=== PATIENT | female | born 1990 | race Caucasian/White ===

== ENCOUNTER → 2023-08-10 13:51 | Outpatient (REF) | payer BC, SELFPAY | LOC: HWRAD 13:51 | PROVIDERS: ATTENDING PHYSICIAN Physician Assistant Medical | DX: R35.0 Frequency of micturition (principal) | CPT/HCPCS: 76830; 76856 ==

== ENCOUNTER 2023-09-18 16:52 | Emergency (ER) | payer BC, SELFPAY ==
[2023-09-18 16:55] VITALS: BP 164/107
[2023-09-18 17:33] LABS: HCG, Serum Qualitative Screen Negative
[2023-09-18 17:35] LABS: % Basophils 0.5 % (0-2); % Eosinophils 2.4 % (0-6); % Immature Granulocytes 0.3 % (0-0.5); % Lymphocytes 33.4 % (20.5-51.1); % Monocytes 5.7 % (1.7-9.3); % Neutrophils 57.7 % (42.2-75.2); Absolute Eosinophils 0.2 10^3/uL (0-0.7); Absolute Lymphocytes 2.9 10^3/uL (1.2-3.4); Absolute Monocytes 0.5 10^3/uL (0.1-0.6); Hematocrit 38.6 % (37.0-47.0); Hemoglobin 13.2 g/dL (12.0-16.0); Mean Corp Hgb Conc. 34.2 g/dL (33.0-37.0); Mean Corpuscular Hgb 29.6 pg (27.0-31.0); Mean Corpuscular Volume 86.5 fL (81.0-99.0); Mean Platelet Volume 9.5 fL (7.4-10.4); Nucleated Red Blood Cells % 0 %; Platelet Count 250 10^3/uL (130-400); Red Blood Cell Count 4.46 10^6/uL (4.20-5.40); Red Cell Dist. Width 12.9 % (11.5-14.5); White Blood Cell Count 8.6 10^3/uL (4.8-10.8)
[2023-09-18 17:38] LABS: ALT (SGPT) 17 U/L (0-35); AST (SGOT) 20 U/L (14-36); Albumin 4.6 g/dl (3.5-5.0); Alkaline Phosphatase 79 U/L (38-126); Blood Urea Nitrogen 16 mg/dl (7-17); Calcium 9.6 mg/dl (8.4-10.2); Carbon Dioxide 25 mmol/L (22-30); Chloride 107 mmol/L (98-107); Glucose 98 mg/dl (70-99); Potassium 3.9 mmol/L (3.5-5.1); Sodium 139 mmol/L (135-145); Total Bilirubin 0.4 mg/dl (0.2-1.3); Total Protein 7.2 g/dl (6.3-8.2); eGFR > 60.00
--- NOTE | 2023-09-18 18:18 | ED.GENMED ---
History of Present Illness
<Cuauhtemoc Johnson Jr., PA-C - Last Filed: 09/18/23 20:55>
General
Chief Complaint: Numbness
Source: patient
Exam Limitations: none
Time Seen by Provider: 09/18/23 18:01
Nursing documentation reviewed up to this point in time: agreed with
Travel History
Have you had any contact with someone who has COVID-19?: No
Do you have any symptoms of coronavirus? Fever > 100 degrees, chills, cough, shortness of breath, sore throat, loss of taste or smell, muscle aches, or headache?: No
History of Present Illness
History of Present Illness:
Patient is a 33-year-old female without significant chronic medical conditions presenting to the emergency department today with concerns of a tingling sensation to all extremities over the past 2 days as well as tingling sensation to her lips over
the past 24 hours. Denies any specific inciting event denies similar symptoms in the past. Denies any injuries denies neck pain has a mild frontal headache as well. Denies nausea vomiting recent illness.
Past History
<Cuauhtemoc Johnson Jr., PA-C - Last Filed: 09/18/23 20:55>
Past History
ED Past Medical History: None
Social History
Tobacco: Non-smoker
Alcohol: None
Family History
Family History: Negative Diabetes, Hypertension or CAD
Review of Systems
<MAYA Kaiser Jr. Last Filed: 09/18/23 20:55>
Review of Systems
Allergies reviewed?: Yes
All Other Systems: ROS reviewed and negative except as documented in HPI and ROS
Phy Exam
<MAYA Kaiser Jr. Last Filed: 09/18/23 20:55>
Physical Exam
Physical Exam:
GENERAL: Alert , in no apparent distress
EYE: pupils equal and reactive
NECK: Supple, no significant adenopathy.
ENT: o/p clr, mmm.
CARDIAC: Regular rate and rhythm .
LUNGS: Clear breath sounds bilaterally, no acute respiratory distress, no wheezes/rales/rhonchi
ABDOMEN: Soft, without focal tenderness, no r/g, no cvat
NEUROLOGICAL: Alert and oriented, no focal neuro deficits 5 out of 5 upper and lower extremity strength normal sensation were palpated bilaterally normal finger-nose and [id number] no pronator drift
SKIN: Warm and dry, skin intact.
MUSCULOSKELETAL: No edema, well perfused.
PSYCH: Normal and appropriate interaction.
Course
<Cuauhtemoc Johnson Jr., PA-C - Last Filed: 09/18/23 20:55>
Orders/Labs/Results
Orders:
Orders
09/18/23 17:01
EKG [Electrocardiogram (*1)] Urgent
Reason for Study: Fatigue / Weakness
09/18/23 17:02
EKG- Treatment ONCE
Test Result ONCE
09/18/23 17:11
CMP [Comprehensive Metabolic Panel] Urgent
Complete Blood Count/With Diff Urgent
Folate Urgent
Comment: ADD ON
HCG, Serum Qualitative Screen Urgent
TSH Reflex To Free T4 Urgent
Comment: ADD ON
Vitamin B12 Urgent
Comment: ADD ON
09/18/23 18:15
Add On- LAB Urgent
Tests Added?: tsh free t4, b12, folate lavel
09/18/23 18:34
CT Head W/o Iv Contrast Urgent
Comment:
Reason For Exam: tingling hands/feet
Abnormal Lab Results
09/18/23
17:11
Creatinine 0.5 L mg/dL
(0.6-1.0)
09/18/23 17:11
09/18/23 17:11
Vital Signs
Initial and Last Documented VS:
Initial Vital Signs
Temp Pulse Resp BP Pulse Ox
98.1 F 100 18 164/107 99
09/18/23 16:55 09/18/23 16:55 09/18/23 16:55 09/18/23 16:55 09/18/23 16:55
Last Documented Vital Signs
Temp Pulse Resp BP Pulse Ox
98.1 F 65 19 97/71 97
09/18/23 16:55 09/18/23 19:45 09/18/23 19:45 09/18/23 19:00 09/18/23 19:45
<Carlitos Fierro, DO - Last Filed: 09/18/23 20:37>
Orders/Labs/Results
Orders:
Orders
09/18/23 17:01
EKG [Electrocardiogram (*1)] Urgent
Reason for Study: Fatigue / Weakness
09/18/23 17:02
EKG- Treatment ONCE
Test Result ONCE
09/18/23 17:11
CMP [Comprehensive Metabolic Panel] Urgent
Complete Blood Count/With Diff Urgent
Folate Urgent
Comment: ADD ON
HCG, Serum Qualitative Screen Urgent
TSH Reflex To Free T4 Urgent
Comment: ADD ON
Vitamin B12 Urgent
Comment: ADD ON
09/18/23 18:15
Add On- LAB Urgent
Tests Added?: tsh free t4, b12, folate lavel
09/18/23 18:34
CT Head W/o Iv Contrast Urgent
Comment:
Reason For Exam: tingling hands/feet
Abnormal Lab Results
09/18/23
17:11
Creatinine 0.5 L mg/dL
(0.6-1.0)
09/18/23 17:11
09/18/23 17:11
Vital Signs
Initial and Last Documented VS:
Initial Vital Signs
Temp Pulse Resp BP Pulse Ox
98.1 F 100 18 164/107 99
09/18/23 16:55 09/18/23 16:55 09/18/23 16:55 09/18/23 16:55 09/18/23 16:55
Last Documented Vital Signs
Temp Pulse Resp BP Pulse Ox
98.1 F 65 19 97/71 97
09/18/23 16:55 09/18/23 19:45 09/18/23 19:45 09/18/23 19:00 09/18/23 19:45
<Cuauhtemoc Johnson Jr., PA-C - Last Filed: 09/18/23 20:55>
MDM/Problems Addressed
MDM/Problems Addressed:
33-year-old female presenting to the emergency department today with concerns of tingling of her hands and feet bilaterally and symmetrically over the past 48 hours or so. Also has a mild frontal headache over the past day. Denies ever having
similar symptoms in the past no head trauma no nausea vomiting no recent illness. No major focal neurologic findings on exam. Labs unremarkable normal B12 folate level TSH patient not normal EKG CT scan normal as well. No signs of
emergent process advised for close outpatient follow-up. Return precautions given.
<Cuauhtemoc Johnson Jr., PA-C - Last Filed: 09/18/23 20:55>
*Critical Care Note
Total Time (30-74mins, 75-104mins- exclusive of procedures): Not Applicable
ED Attending Note
<Cuauhtemoc Johnson Jr., PA-C - Last Filed: 09/18/23 20:55>
-
Portions of this chart may have been created with voice recognition software.� Occasional wrong word or��sound alike� substitutions may have occurred due to the inherent limitations of voice recognition software.
<Carlitos Fierro DO - Last Filed: 09/18/23 20:37>
ED Attending Note
Patient seen and examined by attending physician: Yes
ED Attending Note:
I have reviewed and agree with history and treatment plan by Ed Alex. My exam revealed
Physical Exam
General: no apparent distress, not acutely ill
Neck: supple. no meningeal signs. normal posterior pharynx
Heart: s1/s2 regular rate and rhythm, no murmur. equal radial
pulses.
HEENT: Pupils equal round reactive to light, EOMI
Lungs: no acute respiratory distress. clear bilaterally
Abdomen: normal bowel sounds. not tender. no CVAT
Neuro: alert and oriented. no focal neurological deficits cranial nerves II through XII intact
Skin: no rash
Psychiatric: well kept. interactive and cooperative
Extremities: no edema. no calf tenderness. negative homans. good distal pulses
Patient with paresthesias, unclear etiology. CT head no acute findings. Do not suspect CVA. Stable for discharge. Follow-up primary care.
Discharge Plan
Departure
Patient Disposition: Home (Routine Discharge)
Date of Disposition: 09/18/23
Time of Disposition: 20:54
Patient with high blood pressure during this ER visit?: No
Condition: Good
Covid-19: Not Applicable
Discharge Problem:
Tingling
Instructions: Peripheral Neuropathy (DC), Paresthesia (DC)
Prescriptions:
No Action
oxycodone-acetaminophen 5 MG/325 MG tablet
1 tab PO Q4HPRN PRN (Reason: moderate pain) Qty: 15 0RF
ibuprofen 600 MG tablet
600 mg PO Q4HPRN PRN (Reason: cramps) 0RF
Vitamin Tablet
1 tab PO DAILY
prochlorperazine maleate 10 MG tablet
10 mg PO Q8HPRN PRN (Reason: headache and nausea) Qty: 12 0RF
Referrals:
Edward Pisano MD [Active] - Call in 1-3 days for appt
Alicia Mauro PA-C [Family Provider] -
Activity Restrictions/Additional Instructions:
You came to the emergency department today with concerns of tingling of your extremities as well as face. Here you had a reassuring evaluation with no obvious explanation for this but no signs of emergent process. Please go closely as an
outpatient with your primary care doctor and neurology. Return to the emergency department for any worsening, new or concerning symptoms.
Interventions
Interventions:
*Risk Screen - Suicide Last Done: 09/18/23 16:55
*General Assessment Last Done: 09/18/23 16:55
*Neglect/Abuse Screening Last Done: 09/18/23 16:55
ED- Fall Risk Assessment Last Done: 09/18/23 18:30
*ED COVID-19 Vaccine History Last Done: 09/18/23 16:55
ED- Neurological Assessment Last Done: 09/18/23 18:28
Discharge Date and Time
Print Language: MAORI
[2023-09-18 18:26] VITALS: BP 104/54
[2023-09-18 19:00] VITALS: BP 97/71
[2023-09-18 19:52] LABS: Folate 9.5 ng/ml (2.76-20); Vitamin B12 464 pg/ml (239-931)
== END 2023-09-18 21:10 | disposition home or self-care (01) ==
LOC: EMR 16:52
PROVIDERS: EMERGENCY PHYSICIAN Emergency Medicine; FAMILY PHYSICIAN Physician Assistant Medical
DX: R20.2 Paresthesia of skin (principal)
CPT/HCPCS: 99284; 70450; 80053; 82607; 82746; 84443; 84703; 85025; 93005